=== PATIENT | female | born 1985 | race Caucasian/White ===

== ENCOUNTER → 2019-03-13 | Outpatient (REF) | payer OTHER ==
[~2019-03-13] MED LIST: ALBU8.5H INH; AMOX500C PO; BUPR300T34 PO; BUSP10TA PO; DICL1GEL3 TOP; FLOM0.4C39 PO; METH1TAB40 PO; NAPR-885 PO; ONDA4TAB6 PO; ONDA8TAB7 PO; PERC5TAB12 PO; REGL10TA6 PO
== END ==
LOC: M SFHCLERA 19:57
PROVIDERS: ATTEND Nurse Practitioner Family
DX: M54.5 Low back pain (principal)
CPT/HCPCS: 81002; 81025; 87086; 96372; G0463; J1885

== ENCOUNTER 2019-03-14 03:57 | Emergency (ER) | payer OTHER ==
[~2019-03-14] VITALS: Ht 157.5 cm; Wt 91.8 kg
[2019-03-14] MEDS ORDERED: DICL1GEL3 TOP (04:25)
[2019-03-14] MEDS ORDERED: BUPR300T34 PO (04:25)
[2019-03-14] MEDS ORDERED: BUSP10TA PO (04:25)
[2019-03-14] MEDS ORDERED: ONDA8TAB7 PO (04:25)
[2019-03-14] MEDS ORDERED: METH1TAB40 PO (04:25)
[2019-03-14] MEDS ORDERED: NAPR-885 PO (04:25)
[2019-03-14] MEDS ORDERED: AMOX500C PO (04:25)
[2019-03-14] MEDS ORDERED: ALBU8.5H INH (04:25)
[2019-03-14] MEDS ORDERED: KETOROLAC 30 MG/ML VIAL (J1885) As Ordered ONE (04:33)
[2019-03-14] MEDS ORDERED: ONDANSETRON 4MG/2ML VIAL (J2405) As Ordered ONE (04:33)
[2019-03-14] MEDS ORDERED: ISOVUE-370 76% 100ML VIAL (Q9967) As Ordered ONE (04:44)
[2019-03-14] MEDS ORDERED: KETOROLAC 30 MG/ML VIAL (J1885) IV ONE (04:45)
[2019-03-14] MEDS ORDERED: ONDANSETRON 4MG/2ML VIAL (J2405) IV ONE (04:45)
[2019-03-14] MEDS ORDERED: NS 1,000 ML IV ONE (04:45)
[2019-03-14 04:52] LABS: BASO # 0.1 10^3/uL (0.0-0.2); BASO % 0.4 % (0.0-1.0); EOS % 0.1 % (0.0-3.0); HEMATOCRIT 44.3 % (36.0-47.0); HEMOGLOBIN 13.9 g/dl (12.0-15.5); LYMPH # 0.8 10^3/uL (1.5-5.0); LYMPH % 4.5 % (24.0-44.0); MEAN CORPUSCULAR HEMOGLOBIN 26.5 pg (27.0-33.0); MEAN CORPUSCULAR HGB CONC 31.4 g/dl (32.0-36.5); MEAN CORPUSCULAR VOLUME 84.4 fl (80.0-96.0); MONO # 0.4 10^3/uL (0.0-0.8); MONO % 2.1 % (0.0-5.0); NEUTROPHILS # 17.4 10^3/uL (1.5-8.5); NEUTROPHILS % 92.3 % (36.0-66.0); PLATELET COUNT, AUTOMATED 300 10^3/uL (150-450); RED BLOOD COUNT 5.25 10^6/uL (4.00-5.40); WHITE BLOOD COUNT 18.8 10^3/uL (4.0-10.0)
[2019-03-14 05:24] LABS: ALBUMIN 3.8 GM/DL (3.2-5.2); BILIRUBIN,DIRECT 0.2 MG/DL (0.0-0.2); TOTAL PROTEIN 7.2 GM/DL (6.4-8.2)
--- NOTE | 2019-03-14 06:03 | REPVR ---
PROCEDURE INFORMATION: Exam: CT Abdomen and Pelvis With Contrast Exam date and time: 03/14/2019 4:39 AM Clinical history: 33 years old, female; Abdominal pain; Localized; Left; Additional info: Left sided abd pain TECHNIQUE: Imaging protocol: Computed tomography of the abdomen and pelvis with intravenous contrast. Radiation optimization: All CT scans at this facility use at least one of these dose optimization techniques: automated exposure control; mA and/or kV adjustment per patient size (includes targeted exams where dose is matched to clinical indication); or iterative reconstruction. Contrast material: ISO; Contrast volume: 100 ml; Contrast route: AC; COMPARISON: No relevant prior studies available. FINDINGS: Liver: The liver attenuation is 86 Hounsfield units and the spleen is 121 Hounsfield units. Gallbladder and bile ducts: Status post cholecystectomy. Pancreas: Normal. No ductal dilation. Spleen: Normal. No splenomegaly. Adrenals: Small macroscopic fatty nodule of the right adrenal measuring 7 mm with a Hounsfield measurement of -88. Kidneys and ureters: Left renal peripelvic cysts measuring up to 3.4 cm. Stomach and bowel: Unremarkable. No obstruction. No mucosal thickening. Appendix: There are no changes of appendicitis. A normal appendix is not seen. Intraperitoneal space: Unremarkable. No free air. No significant fluid collection. Vasculature: Incidental note of an accessory retroaortic left renal vein. Lymph nodes: Unremarkable. No enlarged lymph nodes. Bladder: Unremarkable as visualized. Reproductive: The ovaries are normal and symmetric. Bones/joints: Unremarkable. No acute fracture. Soft tissues: Unremarkable. IMPRESSION: 1. Status post cholecystectomy. 2. Fatty infiltration of the liver. 3. Left renal peripelvic cysts. 4. Otherwise negative CT abdomen/pelvis. Electronically signed by: Shaun Mcmillan On 03/14/2019 06:03:34 AM
[2019-03-14] MEDS ORDERED: ONDA4TAB6 PO (06:23)
[2019-03-14] MEDS ORDERED: PERC5TAB12 PO (06:23)
[2019-03-14] MEDS ORDERED: FLOM0.4C39 PO (06:23)
[2019-03-14] MEDS ORDERED: REGL10TA6 PO (06:23)
[2019-03-14] MEDS ORDERED: OXYCODONE/APAP 5MG/325MG(BULK FOR ED) 1 TABLET PO ONE (06:30)
[2019-03-14] MEDS ORDERED: TAMSULOSIN 0.4 MG CAP PO ONE (06:30)
[2019-03-14 06:40] VITALS: BP 117/65
== END 2019-03-14 06:48 | disposition home or self-care (01) ==
LOC: M ED 03:57
DX: R10.9 Unspecified abdominal pain (principal); R11.10 Vomiting, unspecified; N20.0 Calculus of kidney; J18.9 Pneumonia, unspecified organism; Z79.899 Other long term (current) drug therapy; Z79.2 Long term (current) use of antibiotics; Z88.8 Allergy status to other drugs, medicaments and biological substances
CPT/HCPCS: 36415; 74177; 80047; 80076; 81001; 83690; 84702; 85025; 96361; 96374; 96375; 99284; J1885; J2405; Q9967